=== PATIENT | male | born 1985 | race Caucasian/White ===

== ENCOUNTER → 2019-05-15 12:03 | Emergency (ER) | payer OTHER ==
[~2019-05-15 12:03] MED LIST: Clindamycin CAP* 150 MG PO ONE
--- NOTE | 2019-05-15 14:26 | ED ---
Skin Complaint - HPI Summary HPI Summary: 33-year-old presents with left-sided facial abscess for a couple days. he states it started as ingrown hair. He states he's been draining pus from the area. He states that this been getting more swollen and painful. Denies any fevers. Never happened before. Has no medical conditions. - History of Current Complaint Chief Complaint: EDRashSkinAbscess Time Seen by Provider: 05/15/19 12:23 Stated Complaint: INFECTION ON HIS FACE PER PATIENT Pain Intensity: 3 - Allergy/Home Medications Allergies/Adverse Reactions: Allergies Allergy/AdvReac Type Severity Reaction Status Date / Time No Known Allergies Allergy Verified 05/15/19 12:05 Home Medications: Home Medications Omeprazole CAP (NF) [Prilosec CAP* 20 MG] 20 mg PO DAILY 05/15/19 [History Confirmed 05/15/19] PMH/Surg Hx/FS Hx/Imm Hx Endocrine/Hematology History: Denies: Hx Anticoagulant Therapy Respiratory History: Denies: Hx Asthma Infectious Disease History: No Infectious Disease History: Denies: Traveled Outside the [place] in Last 30 Days - Family History Known Family History: Positive: Non-Contributory - Social History Alcohol Use: Occasionally Substance Use Type: Reports: None Smoking Status (MU): Never Smoked Tobacco Review of Systems Negative: Fever Negative: Chest Pain Negative: Shortness Of Breath Positive: Other - left lower jaw pain All Other Systems Reviewed And Are Negative: Yes Physical Exam Triage Information Reviewed: Yes Vital Signs On Initial Exam: Initial Vitals Temp Pulse Resp BP Pulse Ox 98.0 F 68 16 155/92 98 05/15/19 12:05 05/15/19 12:05 05/15/19 12:05 05/15/19 12:05 05/15/19 12:05 Vital Signs Reviewed: Yes Appearance: Positive: Well-Appearing Skin: Positive: Warm, Dry, Other - 2cm by 3cm abscess to left side of face Head/Face: Positive: Normal Head/Face Inspection Eyes: Positive: Normal, Conjunctiva Clear ENT: Positive: Pharynx normal Respiratory/Lung Sounds: Positive: Clear to Auscultation, Breath Sounds Present Cardiovascular: Positive: Normal, RRR Musculoskeletal: Positive: Normal Neurological: Positive: Normal Psychiatric: Positive: Normal Procedures - Incision and Drainage facial Site: left sided facial Anesthesia: Topical Instrument(s): Scalpel Diagnostics - Vital Signs Vital Signs Temp Pulse Resp BP Pulse Ox 05/15/19 12:05 98.0 F 68 16 155/92 98 - Laboratory Lab Statement: Any lab studies that have been ordered have been reviewed, and results considered in the medical decision making process. Course/Dx - Course Course Of Treatment: 33-year-old presents with left-sided facial abscess for a couple days. he states it started as ingrown hair. He states he's been draining pus from the area. He states that this been getting more swollen and painful. Denies any fevers. Never happened before. Has no medical conditions. On exam has abscess noted to the left side of face near jawline. I &D the area. gave culture. Will place on clindamycin. Patient understands agrees with plan. - Differential Diagnoses - Skin Complaint Differential Diagnoses: Abscess, Cellulitis, Contact Dermatitis - Diagnoses Provider Diagnoses: Abscess Discharge - Sign-Out/Discharge Documenting (check all that apply): Patient Departure Patient Received Moderate/Deep Sedation with Procedure: No - Discharge Plan Condition: Good Disposition: HOME Prescriptions: Clindamycin Cap(NF) [Clindamycin Cap 300 mg Cap(NF)] 300 mg PO TID #29 cap Patient Education Materials: Abscess (ED) Referrals: No Primary Care Phys,NOPCP [Primary Care Provider] - Additional Instructions: Take antibiotic three a day for 10 days, first dose given in ED Apply warm compresses to area Take ibuprofen or Tylenol for pain every 6 hours Follow up with primary within 3 days Return to ED if develop fever, area of redness spreads, or any new or worsening symptoms - Billing Disposition and Condition Condition: GOOD Disposition: Home
[2019-05-15 14:52] VITALS: BP 142/75
== END | disposition home or self-care (01) ==
LOC: ED 12:03
DX: L02.01 Cutaneous abscess of face (principal); Z79.899 Other long term (current) drug therapy
CPT/HCPCS: 10060; 87070; 87077; 87186; 87205; 87640; 87641; 99282; A9270-GY